=== PATIENT | male | born 1930 | race Caucasian/White ===

== ENCOUNTER 2018-09-02 12:15 | Emergency (ER) | payer MEDICARE ==
[~2018-09-02] VITALS: Ht 165.1 cm; Wt 40.0 kg
[~2018-09-02 12:15] MED LIST: ASPI-1265 PO; ATOR10TA87 PO; DUTA0.5C40 PO; LOP25T PO
[2018-09-02 12:44] LABS: BASOPHILS % (AUTO) 0.2 % (0-1); EOSINOPHILS # (AUTO) 0.1 X10'3 (0-0.9); EOSINOPHILS % (AUTO) 0.5 % (0-6); HEMATOCRIT 30.3 % (42.0-52.0); HEMOGLOBIN 9.8 g/dl (14.0-17.9); LYMPHOCYTES # (AUTO) 0.9 X10'3 (1.1-4.8); LYMPHOCYTES % (AUTO) 7.9 % (21-51); MEAN CORPUSCULAR HEMOGLOBIN 29.1 PG (27.0-31.0); MEAN CORPUSCULAR HGB CONC 32.2 g/dL (33.0-36.5); MEAN CORPUSCULAR VOLUME 90.3 FL (78-98); MONOCYTES # (AUTO) 0.8 X10'3 (0-0.9); MONOCYTES % (AUTO) 6.5 % (2-12); NEUTROPHILS # (AUTO) 9.9 X10'3 (1.8-7.7); NEUTROPHILS % (AUTO) 84.9 % (42-75); PLATELET COUNT 309 X10'3 (140-440); RED BLOOD COUNT 3.36 X10'6 (4.70-6.10); RED CELL DISTRIBUTION WIDTH 19.3 % (11.5-14.5); WHITE BLOOD COUNT 11.7 X10'3 (4.5-11.0)
[2018-09-02 12:53] LABS: ALANINE AMINOTRANSFERASE 7 U/L (12-78); ALBUMIN 1.7 G/DL (3.4-5.0); ALBUMIN/GLOBULIN RATIO 0.4 (1.1-1.5); ALKALINE PHOSPHATASE 71 IU/L (46-116); ANION GAP 5 (8-16); ASPARTATE AMINO TRANSFERASE 8 U/L (10-37); BILIRUBIN,TOTAL 0.4 MG/DL (0.1-1.0); BLOOD UREA NITROGEN 29 MG/DL (7-18); BUN/CREATININE RATIO 18.5 (5.4-32.0); CALCIUM 8.5 MG/DL (8.5-10.1); CHLORIDE 109 MMOL/L (99-107); CREATININE 1.57 MG/DL (0.60-1.10); GLUCOSE 96 MG/DL (70-104); POTASSIUM 4.1 MMOL/L (3.5-5.1); SODIUM 140 MMOL/L (135-145); TOTAL CARBON DIOXIDE 25.6 MMOL/L (24-32); eGFR 42 ML/MIN
[2018-09-02 13:01] LABS: PARTIAL THROMBOPLASTIN TIME 29 SECONDS (22-32)
[2018-09-02] MEDS ORDERED: normal saline 1000ML IV soln IVB ONE (13:10)
[2018-09-02] MEDS ORDERED: LIDOcaine 1% w/epiNEPHrine 1:200,000 30ml vial IM ONE (13:10)
[2018-09-02] MEDS ORDERED: TETanus/Pertussis (Acell)/Diphther VAC/PF (Tdap-Adult) 0.5ml syringe IM ONE (13:10)
[2018-09-02 14:45] LABS: ANISOCYTOSIS 2+; PLATELET ESTIMATE NORMAL
[2018-09-02 15:29] LABS: CLARITY,URINE SLIGHTLY CLOUDY (Clear); GLUCOSE, URINE NEGATIVE (Neg); KETONES,URINE NEGATIVE (Neg); LEUKOCYTE ESTERASE ,URINE NEGATIVE (Neg); NITRITES, URINE NEGATIVE (Neg); OCCULT BLOOD,URINE MODERATE (Neg); PH,URINE 5.5 (4.8-8.0); PROTEIN,URINE 30 mg/dl (Neg)
[2018-09-02 15:30] LABS: COLOR,URINE DARK YELLOW (Yellow); UA COLLECTION TYPE URINAL
[2018-09-02] MEDS ORDERED: CEPH500C5 PO (15:33)
[2018-09-02] MEDS ORDERED: cephalexin 250mg capsule PO ONE (15:35)
[2018-09-02] MEDS ORDERED: CEPH250T PO (15:37)
[2018-09-02 16:00] LABS: BACTERIA,URINE FEW /HPF (Neg); SQUAMOUS EPITHELIAL CELL,UR FEW /LPF (FEW)
[2018-09-02 16:01] LABS: MUCUS STRANDS FEW /LPF (Neg)
--- NOTE | 2018-09-02 17:13 | NUR ---
CALLED 'S NUMBER HOWEVER SHE ANSWERED STATING "GET LOST" AND HUNG UP.
--- NOTE | 2018-09-02 17:15 | NUR ---
called pt son Thierno, spoke to him re: mom hung up on us , telling us to get lost, and will not answer the phone keeps hanging up. he said he will call her and get back to me
--- NOTE | 2018-09-02 17:27 | NUR ---
spoke to pt Gayle, she will be ready to rcv her , she will have her friend get his prescriptions for them, let her know we were arranging trans
[2018-09-02 18:16] VITALS: BP 123/79
== END 2018-09-02 18:17 | disposition home or self-care (01) ==
LOC: ER 12:17
DX: S01.112A Laceration without foreign body of left eyelid and periocular area, initial encounter (principal); R42 Dizziness and giddiness; I25.10 Atherosclerotic heart disease of native coronary artery without angina pectoris; E78.00 Pure hypercholesterolemia, unspecified; I10 Essential (primary) hypertension; I25.2 Old myocardial infarction; F17.200 Nicotine dependence, unspecified, uncomplicated; Z95.5 Presence of coronary angioplasty implant and graft; Z85.118 Personal history of other malignant neoplasm of bronchus and lung; Z88.0 Allergy status to penicillin; Z79.82 Long term (current) use of aspirin; Z79.899 Other long term (current) drug therapy; W01.198A Fall on same level from slipping, tripping and stumbling with subsequent striking against other object, initial encounter; Y93.89 Activity, other specified; Y92.89 Other specified places as the place of occurrence of the external cause; Y99.9 Unspecified external cause status
CPT/HCPCS: 12011; 36415; 70450; 71045; 80053; 81001; 84484; 85025; 85610; 85730; 87088; 90471; 90715; 93005; 96360; 96361; 99284; J3490; J7030